=== PATIENT | female | born 1990 | race Caucasian/White ===

== ENCOUNTER 2018-10-10 21:09 | Emergency (ER) | payer SELFPAY ==
[2018-10-10] MEDS ORDERED: NS 0.9% 1000 ML** 1,000 ML IV ONE (21:16)
[2018-10-10 21:35] LABS: ABS Basophils 0.1 10^3/ul (0-0.2); ABS Eosinophils 0.1 10^3/ul (0-0.6); ABS Lymphocytes 3.6 10^3/ul (1.0-4.8); Hematocrit 38 % (35-47); Hemoglobin 12.7 g/dL (12.0-16.0); Lymphocyte % 28.1 %; Mean Corpuscular HGB Conc 33 g/dL (31-36); Mean Corpuscular Hemoglobin 29 pg (27-31); Mean Corpuscular Volume 88 fL (80-97); Mean Platelet Volume 8.6 fL (7.4-10.4); Platelet Count 288 10^3/uL (150-450); Red Blood Count 4.37 10^6 /uL (3.70-4.87); Red Cell Distribution Width 14 % (10.5-15); White Blood Count 12.8 10^3/uL (3.5-10.8)
[2018-10-10 21:53] LABS: Anion Gap 5 mmol/L (2-11); BUN/Creatinine Ratio 15.8 (8-20); Blood Urea Nitrogen 12 mg/dL (6-24); CO2 Carbon Dioxide 27 mmol/L (22-32); Chloride 107 mmol/L (101-111); EGFR African American 108.9 (>60); Glucose 126 mg/dL (70-100); Potassium 3.7 mmol/L (3.5-5.0); Sodium 139 mmol/L (135-145)
[2018-10-10 22:00] LABS: HCG Pregnancy < 0.60 mIU/mL
--- NOTE | 2018-10-10 22:48 | ED ---
Lower Extremity - HPI Summary HPI Summary: Pt is a 28 y/o female who presents to the ED c/o ankle injury. Around 8:15 this morning she had a syncopal episode after standing up too quickly. Pt sustained an injury to her right ankle, but denies any head injury. Pain is rated a 4/10 in severity, and is made worse with bearing weight. Pt has elevated her ankle [employer]. She now feels nauseated, but denies any dizziness, palpitations, or CP. PMHx syncope. She is currently on her menstrual. Pt denies any drug or alcohol use. - History of Current Complaint Chief Complaint: EDGeneral Stated Complaint: FAINTED AND HURT RIGHT FOOT PER PT Time Seen by Provider: 10/10/18 22:43 Hx Obtained From: Patient Mechanism Of Injury: Fall From A Standing Position Onset of Pain: Hours - 8:15 this morning Onset/Duration: Still Present Severity Currently: Moderate Pain Intensity: 4 Pain Scale Used: 0-10 Numeric Timing: Constant Location: Is Discrete @ - R ankle Aggravating Factor(s): Weight Bearing - Allergies/Home Medications Allergies/Adverse Reactions: Allergies Allergy/AdvReac Type Severity Reaction Status Date / Time No Known Allergies Allergy Verified 10/10/18 21:15 Home Medications: Home Medications Amphetamine/Dextroamph ER(NF) [Adderal XR (NF)] 10 mg PO DAILY 10/10/18 [ History Confirmed 10/10/18] Fluoxetine HCl [Prozac] 20 mg PO DAILY 10/10/18 [History Confirmed 10/10/18] Levothyroxine Sodium [Synthroid] 25 mcg PO DAILY 10/10/18 [History Confirmed ] PMH/Surg Hx/FS Hx/Imm Hx Endocrine/Hematology History: Denies: Hx Diabetes Neurological History: Reports: Other Neuro Impairments/Disorders - syncope Infectious Disease History: No Infectious Disease History: Denies: Traveled Outside the [place] in Last 30 Days - Family History Known Family History: Positive: Non-Contributory - Social History Alcohol Use: None Hx Substance Use: No Substance Use Type: Reports: None Hx Tobacco Use: No Smoking Status (MU): Never Smoked Tobacco Review of Systems Negative: Palpitations, Chest Pain Positive: Nausea Positive: Arthralgia - R ankle injury Neurological: Other - NEGATIVE: dizziness Positive: Syncope All Other Systems Reviewed And Are Negative: Yes Physical Exam - Summary Physical Exam Summary: Appearance: well appearing, no pain distress Skin: warm, dry, reflects adequate perfusion Head/face: normal Eyes: EOMI, LESLIE ENT: mucous membranes moist Neck: supple, non-tender Respiratory: CTA, breath sounds present Cardiovascular: RRR, pulses symmetrical Abdomen: non-tender, soft Bowel Sounds: present Musculoskeletal: strength/ROM intact, minimal tenderness and edema to right lateral malleolus Neuro: normal, sensory motor intact, A&Ox3 Triage Information Reviewed: Yes Vital Signs On Initial Exam: Initial Vitals Temp Pulse Resp BP Pulse Ox 98.4 F 72 16 142/80 97 10/10/18 21:11 10/10/18 21:11 10/10/18 21:11 10/10/18 21:11 10/10/18 21:11 Vital Signs Reviewed: Yes Diagnostics - Vital Signs Vital Signs Temp Pulse Resp BP Pulse Ox 10/10/18 21:11 98.4 F 72 16 142/80 97 - Laboratory Lab Results: Lab Results 10/10/18 10/10/18 Range/Units 21:27 21:27 WBC 12.8 H (3.5-10.8) 10^3/uL RBC 4.37 (3.70-4.87) 10^6 /uL Hgb 12.7 (12.0-16.0) g/dL Hct 38 (35-47) % MCV 88 (80-97) fL MCH 29 (27-31) pg MCHC 33 (31-36) g/dL RDW 14 (10.5-15) % Plt Count 288 (150-450) 10^3/uL MPV 8.6 (7.4-10.4) fL Neut % (Auto) 62.4 % Lymph % (Auto) 28.1 % Yancey % (Auto) 7.8 % Eos % (Auto) 1.0 % Baso % (Auto) 0.7 % Absolute Neuts (auto) 8.0 H (1.5-7.7) 10^3/ul Absolute Lymphs (auto) 3.6 (1.0-4.8) 10^3/ul Absolute Monos (auto) 1.0 H (0-0.8) 10^3/ul Absolute Eos (auto) 0.1 (0-0.6) 10^3/ul Absolute Basos (auto) 0.1 (0-0.2) 10^3/ul Absolute Nucleated RBC 0.0 10^3/ul Nucleated RBC % 0.0 Sodium 139 (135-145) mmol/L Potassium 3.7 (3.5-5.0) mmol/L Chloride 107 (101-111) mmol/L Carbon Dioxide 27 (22-32) mmol/L Anion Gap 5 (2-11) mmol/L BUN 12 (6-24) mg/dL Creatinine 0.76 (0.51-0.95) mg/dL Est GFR ( Amer) 108.9 (>60) Est GFR (Non-Af Amer) 90.0 (>60) BUN/Creatinine Ratio 15.8 (8-20) Glucose 126 H (70-100) mg/dL Calcium 9.0 (8.6-10.3) mg/dL Beta HCG, Quant < 0.60 mIU/mL Result Diagrams: 10/10/18 21:27 10/10/18 21:27 Lab Statement: Any lab studies that have been ordered have been reviewed, and results considered in the medical decision making process. - Radiology Ankle XR Radiology Interpretation Completed By: ED Physician Summary of Radiographic Findings: No fracture. Pending official radiology report. - EKG 22:35 Cardiac Rate: Bradycardia - 57 bpm EKG Rhythm: Sinus Bradycardia ST Segment: Normal Summary of EKG Findings: Nl axis, nl intervals Lower Extremity Course/Dx - Course Course Of Treatment: X-ray is negative. Patient is ambulatory. Casey wrap applied and discharged with rice, NSAID. - Diagnoses Differential Diagnosis/HQI/PQRI: Positive: Fracture (Closed), Sprain, Strain Provider Diagnoses: Vasovagal syncope, Ankle sprain Discharge - Sign-Out/Discharge Documenting (check all that apply): Patient Departure - Discharge Patient Received Moderate/Deep Sedation with Procedure: No - Discharge Plan Condition: Good Disposition: HOME Patient Education Materials: Ankle Sprain (ED), Syncope (ED) Forms: *Work Release Referrals: Bere Gonzales MD [Primary Care Provider] - Additional Instructions: Rest, ice, elevate, Casey wrap the ankle for comfort. Anti-inflammatory such as ibuprofen will help. Call your doctor in the morning to schedule follow-up for your fainting. Return if worse, new symptoms or other concerns. - Billing Disposition and Condition Condition: GOOD Disposition: Home - Attestation Statements Document Initiated by Scribe: Yes Documenting Scribe: Leona Santana Provider For Whom Scribe is Documenting (Include Credential): Jonh Leo MD Scribe Attestation: ILeona, scribed for Jonh Leo MD on 10/11/18 at 0547. Scribe Documentation Reviewed: Yes Provider Attestation: The documentation as recorded by the Leona daniels accurately reflects the service I personally performed and the decisions made by , Jonh Leo MD Status of Scribe Document: Viewed
[2018-10-10 23:02] VITALS: BP 139/74
== END 2018-10-10 23:02 | disposition home or self-care (01) ==
LOC: ED 21:09
DX: R55 Syncope and collapse (principal); S93.401A Sprain of unspecified ligament of right ankle, initial encounter; R11.0 Nausea; X58.XXXA Exposure to other specified factors, initial encounter; Y92.9 Unspecified place or not applicable
CPT/HCPCS: 36415; 80048; 84702; 85025; 93005; 99283